=== PATIENT | male | born 1975 | race Caucasian/White ===

== ENCOUNTER 2018-06-06 19:01 | Emergency (ER) | payer MEDICARE ==
[~2018-06-06] VITALS: Ht 157.5 cm; Wt 48.0 kg
[~2018-06-06 19:01] MED LIST: CITA40TA12 PO; DIPH25CA61 PO; OXCA150T18 PO; OXYC-306 PO; RISP-2 PO; SULF1TAB24 PO
[2018-06-06 19:06] VITALS: BP 129/86
[2018-06-06 19:46] LABS: ANION GAP 12 mmol/L (5-15); CALCIUM 9.4 mg/dL (8.5-10.1); CHLORIDE 100 mmol/L (98-107); CREATININE 1.08 mg/dL (0.7-1.3)
[2018-06-06 19:48] LABS: BASOPHILS # (AUTO) 0.03 x10^3/uL (0-0.1); BASOPHILS % (AUTO) 0 % (0-1); EOSINOPHILS # (AUTO) 0.09 x10^3/uL (0-0.4); EOSINOPHILS % (AUTO) 1 % (1-7); LYMPHOCYTES # (AUTO) 2.61 x10^3/uL (1-3.4); LYMPHOCYTES % (AUTO) 16 % (22-44); MD NO; MEAN CORPUSCULAR HEMOGLOBIN 30.8 pg (27.5-34.5); MEAN CORPUSCULAR VOLUME 90.6 fL (81-97); MEAN PLATELET VOLUME 7.3 fL (7.4-10.4); MONOCYTES # (AUTO) 1.35 x10^3/uL (0.2-0.8); MONOCYTES % (AUTO) 8 % (2-9); NEUTROPHILS % (AUTO) 75 % (42-75); PLATELET COUNT 461 x10^3/uL (130-400); RED BLOOD COUNT 5.42 x10^6/uL (4.38-5.82); RED CELL DISTRIBUTION WIDTH 14.8 % (9.4-14.8)
== END 2018-06-06 20:18 | disposition home or self-care (01) ==
LOC: ED 20:17
DX: L02.415 Cutaneous abscess of right lower limb (principal); L02.811 Cutaneous abscess of head [any part, except face]; I10 Essential (primary) hypertension; F20.9 Schizophrenia, unspecified; F31.9 Bipolar disorder, unspecified; Z88.6 Allergy status to analgesic agent
CPT/HCPCS: 10160; 36415; 80048; 82962; 85025; 99284